=== PATIENT | male | born 1995 | race American Indian/Alaskan Native ===

== ENCOUNTER 2018-02-21 09:30 | Emergency (ER) | payer MEDICAID ==
[2018-02-21 09:38] VITALS: BP 135/85
[2018-02-21 11:52] LABS: Bacteria,Urine 1+ /HPF (Negative); Bilirubin,Urine NEG (Negative); Blood,Urine SM (Negative); Color,Urine Yellow (Yellow); Mucus,Urine 2+ /HPF; Protein,Urine <15 mg/dL mg/dL (Negative); Urobilinogen,Urine < 2.0 mg/dL (<2.0)
--- NOTE | 2018-02-21 12:24 | Emergency Department Report ---
ED Male HPI - General Chief complaint: Urogenital-Male Stated complaint: PAINFUL URINATION Time Seen by Provider: 02/21/18 11:34 Source: patient Mode of arrival: Ambulatory Limitations: No Limitations - History of Present Illness Initial comments: This is a 22-year-old -[place] male who presents with dysuria for one week. Patient states he just got out of long-term yesterday and symptoms started while incarcerated. He admits to dysuria and suprapubic pelvic pain. Patient states he had similar symptoms in July and seen at [facility]. He was prescribed antibiotics which helped. He admits to exposure to STDs. He denies discharge, low back pain, frequency, urgency, fever, testicular swelling or pain. MD Complaint: dysuria Onset/Timin -: week(s) Location: abdomen (suprapubic pain) Radiation: none Severity: moderate Severity scale (0 -10): 6 Quality: burning Consistency: constant Improves with: none Worsens with: urination new sexual partner dysuria. denies: discharge, swelling, mass, rash, urinary retention, blood in urine, fever, nausea/vomiting, incontinence - Related Data Sexually active: Yes Previous Rx's Medication Instructions Recorded Last Taken Type fluPHENAZine (NF) [Prolixin] 1 mg PO QDAY #60 tablet 05/17/15 Unknown Rx traZODone [Desyrel] 50 mg PO QHS #30 tablet 05/17/15 Unknown Rx Allergies Allergy/AdvReac Type Severity Reaction Status Date / Time No Known Allergies Allergy Unverified 06/06/13 16:04 ED Review of Systems ROS: Stated complaint: PAINFUL URINATION Other details as noted in HPI Constitutional: denies: chills, fever Respiratory: denies: cough, shortness of breath, wheezing Cardiovascular: denies: chest pain, palpitations Gastrointestinal: abdominal pain (suprapubic pain). denies: nausea, diarrhea Genitourinary: dysuria. denies: urgency, frequency, hematuria, discharge, testicular pain, testicular mass Musculoskeletal: denies: back pain, joint swelling, arthralgia Skin: denies: rash, lesions Neurological: denies: headache, weakness, paresthesias Psychiatric: denies: anxiety, depression ED Past Medical Hx - Past Medical History Previous Medical History?: Yes Hx Psychiatric Treatment: Yes (Schizophrenia) - Surgical History Past Surgical History?: No - Social History Smoking Status: Unknown if ever smoked - Medications Home Medications: Home Medications Medication Instructions Recorded Confirmed Last Taken Type fluPHENAZine (NF) [Prolixin] 1 mg PO QDAY #60 tablet 05/17/15 Unknown Rx traZODone [Desyrel] 50 mg PO QHS #30 tablet 05/17/15 Unknown Rx ED Physical Exam - General Limitations: No Limitations General appearance: alert, in no apparent distress - Respiratory Respiratory exam: Present: normal lung sounds bilaterally. Absent: respiratory distress - Cardiovascular Cardiovascular Exam: Present: regular rate, normal rhythm. Absent: systolic murmur, diastolic murmur, rubs, gallop - GI/Abdominal GI/Abdominal exam: Present: soft, normal bowel sounds. Absent: distended, tenderness, guarding, rebound, rigid, organomegaly, mass - Back Exam Back exam: Absent: CVA tenderness (R), CVA tenderness (L) - Neurological Exam Neurological exam: Present: alert, oriented X3 - Psychiatric Psychiatric exam: Present: normal affect, normal mood - Skin Skin exam: Present: warm, dry, intact, normal color. Absent: rash ED Course Vital Signs 02/21/18 09:36 Temperature 98.1 F Pulse Rate 98 H Respiratory 16 Rate Blood Pressure 135/85 O2 Sat by Pulse 100 Oximetry ED Medical Decision Making - Medical Decision Making Patient was examined by me. Vitals are stable and in no acute distress. Labs obtained. Urinalysis positive for small amount of blood. Empirically treated with Rocephin 250 mg IM and azithromycin 1 g by mouth. Discharged home in stable condition. Referral to urology for further evaluation. Discussed prevention options. F/U with PCP or Health Department. Critical care attestation.: If time is entered above; I have spent that time in minutes in the direct care of this critically ill patient, excluding procedure time. ED Disposition Clinical Impression: Exposure to STD, Dysuria Disposition: DC-01 TO HOME OR SELFCARE Is pt being admited?: No Does the pt Need Aspirin: No Condition: Stable Instructions: Sexually Transmitted Diseases (ED), Safe Sex (ED) Additional Instructions: Avoid drinking alcohol while taking antibiotics and for 24 hours after completion. Continue safe sexual intercourse. Follow up with Primary Care Provider or health department. Referrals: [facility] [Provider Group] - 3-5 Days [facility] [Outside] - 3-5 Days [facility] [Outside] - 3-5 Days Time of Disposition: 12:27 Print Language: GREENLANDIC
[2018-02-21] MEDS ORDERED: XYLOCAINE 1% MPF 5 mL INFILTRATI ONE (12:29)
[2018-02-21] MEDS ORDERED: ZITHROMAX PO ONE (12:29)
[2018-02-21] MEDS ORDERED: ROCEPHIN IM ONE (12:29)
== END 2018-02-21 13:01 | disposition home or self-care (01) ==
LOC: ED 09:30
DX: R30.0 Dysuria (principal); Z20.2 Contact with and (suspected) exposure to infections with a predominantly sexual mode of transmission; F20.9 Schizophrenia, unspecified
CPT/HCPCS: 81001; 87591; 99283; J0696